=== PATIENT | female | born 1960 | race Caucasian/White ===

== ENCOUNTER → 2016-06-30 | Outpatient (CLI) | payer BC ==
[~2016-06-30] MED LIST: ATOR10TA82 PO; FLUO20CA35 PO; HYDC25 PO; IBUP-1050 PO; LOSA50TA6 PO; RIZA10TA19 PO
== END | disposition home or self-care (01) ==
LOC: C.RDSM 10:00
PROVIDERS: ATTEND Family Medicine Sports Medicine
DX: M25.531 Pain in right wrist (principal)

== ENCOUNTER → 2016-11-05 | Outpatient (CLI) | payer BC ==
[~2016-11-05] MED LIST changes: -ATOR10TA82 PO; +ATOR10TA88 PO
--- NOTE | 2016-11-05 08:07 | DIAGNOSTIC IMAGING REPORT ---
CHEST 2 VIEWS ROUTINE CLINICAL HISTORY: Cough. COMPARISON STUDY: Chest radiograph June 12, 2014. FINDINGS: Lung volumes are normal. There is no pneumothorax or pleural effusion. There is no consolidation or evidence of pulmonary edema. Cardiomediastinal silhouette is normal. The appearance of the chest is unchanged. IMPRESSION: No acute cardiopulmonary findings. Electronically signed by: Bruno Jackson M.D. 11/05/2016 8:05 AM Dictated Date/Time: 11/05/2016 8:05 AM
== END | disposition home or self-care (01) ==
LOC: C.RAD 07:40
PROVIDERS: ATTEND Family Medicine
DX: R05 Cough (principal)

== ENCOUNTER → 2017-05-19 | Outpatient (CLI) | payer OTHER ==
[~2017-05-19] MED LIST changes: +ATOR10TA82 PO; -ATOR10TA88 PO
--- NOTE | 2017-05-20 08:02 | MAMMOGRAPHY REPORT ---
BILATERAL DIGITAL SCREENING MAMMOGRAM TOMOSYNTHESIS WITH CAD: 05/19/2017 CLINICAL HISTORY: Routine screening. Patient has no complaints. TECHNIQUE: Breast tomosynthesis in addition to standard 2D mammography was performed. Current study was also evaluated with a Computer Aided Detection (CAD) system. COMPARISON: Comparison is made to exams dated: 05/18/2013 mammogram, 05/02/2013 mammogram, and 02/07/20 09 mammogram - [facility]. BREAST COMPOSITION: The tissue of both breasts is almost entirely fatty. FINDINGS: No suspicious masses, calcifications, or areas of architectural distortion are noted in ei ther breast. There has been no significant interval change compared to prior exams. IMPRESSION: ACR BI-RADS CATEGORY 1: NEGATIVE There is no mammographic evidence of malignancy. A 1 year screening mammogram is recommended. The pa tient will receive written notification of the results. Approximately 10% of breast cancers are not detected with mammography. A negative mammographic report should not delay biopsy if a clinically suggestive mass is present. Leana Romeo M.D. ah/:05/19/2017 10:50:58 [place] Maker: Flaca Issa, [facility] letter sent: Normal 1/2 BI-RADS Code: ACR BI-RADS Category 1: Negative
== END | disposition home or self-care (01) ==
LOC: C.MAMM 09:43
PROVIDERS: ATTEND Obstetrics & Gynecology
DX: Z12.31 Encounter for screening mammogram for malignant neoplasm of breast (principal)

== ENCOUNTER → 2017-10-11 | Outpatient (CLI) | payer OTHER | END | disposition home or self-care (01) | LOC: C.PAPS 17:44 | PROVIDERS: ATTEND Obstetrics & Gynecology | DX: Z12.4 Encounter for screening for malignant neoplasm of cervix (principal) ==